=== PATIENT | male | born 2000 | race Caucasian/White ===

== ENCOUNTER 2024-12-31 12:31 | Emergency (ER) | payer OTHER ==
[2024-12-31] MEDS ORDERED: NA CHLORIDE 0.9% 1,000 ML ONE (13:12)
[2024-12-31 13:13] LABS: Absolute Lymphocytes (CBC) 1.8 K/uL (0.7-4.9); Hematocrit 43.2 % (39.6-49.0); Hemoglobin 14.7 g/dL (13.6-17.9); MCH 30.0 pg (27.0-35.0); MCHC 34.0 g/dL (32.0-36.0); MCV 88.3 fL (80-100); MPV 8.2 fL (7.6-11.3); Nucleated RBC Absolute Count 0.0 (0-0); Nucleated Red Blood Cells % 0.1 % (0-0); RBC Red Blood Cell Count 4.89 M/uL (4.33-5.43); White Blood Count 5.80 thou/uL (4.3-10.9)
--- NOTE | 2024-12-31 13:50 | RAD REPORT ---
EXAMINATION: ONE VIEW CHEST XR CLINICAL INDICATION: CHEST PAIN TECHNIQUE: Frontal chest projection is submitted. Examination is limited by patient positioning and t echnique. COMPARISON: No prior exam. FINDINGS: The lungs are well inflated and clear. The heart is upper limit of normal in size. No displaced fract ures identified. IMPRESSION: No acute intrathoracic abnormalities.
[2024-12-31 14:03] LABS: Anion Gap 7.4 mEq/L (5.0-15.0); BUN Blood Urea Nitrogen 14 mg/dL (7-18); Glucose Level 78 mg/dL (74-106); Potassium 3.4 mEq/L (3.5-5.1)
[2024-12-31 14:08] LABS: Influenza A Ag Negative; Influenza B Ag Negative; SARS-CoV-2 Antigen Rapid Res Negative (Negative)
[2024-12-31 14:08] LABS: Troponin High Sensitivity < 3.0 pg/mL (<58.9)
--- NOTE | 2024-12-31 14:40 | EDPHYS ---
Physician Documentation [facility] Name: Jamaal Peter Age: 24 yrs Sex: Male : 2000 Arrival Date: 12/31/2024 Time: 12:31 Bed 6 Private MD: ALEC Physician Senthil Alcala HPI: 12/31 18:03 This 24 yrs old Male presents to ER via Ambulatory with complaints of General dr5 Weakness, tired. 18:03 Onset: The symptoms/episode began/occurred 2 week(s) ago. Patient is a 24-year-old male dr5 with history of leukemia, arthritis, anxiety, depression, ADHD coming in with generalized weakness for the past 1 to 2 weeks. Patient reports that he has had intermittent dizziness. Patient states that he is concerned that his leukemia has possibly returned. Patient reports that he had blood work completed last May that was normal. Patient denies chest pain, shortness of breath, fever, abdominal pain, nausea, vomit, diarrhea.. Historical: - Allergies: 12:42 KETAMINE; ll1 12:42 pegaspargase; ll1 12:42 SHELLFISH; ll1 - PMHx: 12:42 Leukemia; Arthritis; ANXIETY/DEPRESSION; adhd; ll1 - PSHx: 12:42 BONE MARROW BIOPSY; KNEE SURGERY; SPINAL TAPS; ll1 - Immunization history:: Adult Immunizations up to date. - Infectious Disease History:: Denies. - Social history:: Smoking status: Patient denies any tobacco usage or history of. ROS: 18:03 Constitutional: as per hpi dr5 Exam: 18:03 Constitutional: This is a well developed, well nourished patient who is awake, alert, dr5 and in no acute distress. Head/Face: Normocephalic, atraumatic. Eyes: Pupils equal round and reactive to light, extra-ocular motions intact. Lids and lashes normal. Conjunctiva and sclera are non-icteric and not injected. Cornea within normal limits. Periorbital areas with no swelling, redness, or edema. Neck: Trachea midline, no thyromegaly or masses palpated, and no cervical lymphadenopathy. Supple, full range of motion without nuchal rigidity, or vertebral point tenderness. No Meningismus. Chest/axilla: Normal chest wall appearance and motion. Nontender with no deformity. No lesions are appreciated. Cardiovascular: Regular rate and rhythm with a normal S1 and S2. Normal PMI, no JVD. No pulse deficits. Respiratory: Lungs have equal breath sounds bilaterally, clear to auscultation. No rales, rhonchi or wheezes noted. No increased work of breathing, no retractions or nasal flaring. Back: No spinal tenderness. No costovertebral tenderness. Full range of motion. Skin: Warm, dry with normal turgor. Normal color with no rashes, no lesions, and no evidence of cellulitis. MS/ Extremity: Pulses equal, no cyanosis. Neurovascular intact. Full, normal range of motion. Neuro: Awake and alert, GCS 15, oriented to person, place, time, and situation. Cranial nerves II-XII grossly intact. Motor strength 5/5 in all extremities. Sensory grossly intact. Cerebellar exam normal. Normal gait. Vital Signs: 12:44 BP 136 / 94; Pulse 78; Resp 16; Temp 97; Pulse Ox 100% ; Weight 72.57 kg; Height 5 ft. ll1 8 in. ; Pain 0/10; 13:15 BP 123 / 88; Pulse 74; Resp 16; Pulse Ox 99% ; ar8 14:15 BP 117 / 71; Pulse 67; Resp 16 S; Pulse Ox 97% on R/A; Pain 0/10; ar8 15:00 BP 122 / 77; Pulse 79; Resp 18; Pulse Ox 100% on R/A; jp5 12:44 Body Mass Index 24.33 (72.57 kg, 172.72 cm) ll1 12:44 Pain Scale: Adult ll1 14:15 Pain Scale: Adult ar8 MDM: 12:36 Medical Screening Exam initiated dr5 18:03 Differential diagnosis: viral Infection, bacterial infection, URI, Anemia, leukemia, dr5 COVID, flu. Data reviewed: vital signs, nurses notes, lab test result(s), CBC, white blood cell count, hemoglobin, hematocrit, platelets, electrolytes, sodium, potassium, chloride, serum bicarbonate, BUN, creatinine, serum glucose, Flu: negative COVID negative, EKG, radiologic studies, plain films. Consideration of Admission/Observation Escalation of care including admission/observation considered. Escalation considered patient found to have elevated troponin, abnormal CBC, or abnormal chest x-ray.. I considered the following discharge prescriptions or medication management in the emergency department I discussed and recommended Over The Counter medications, Medications were administered in the Emergency Department. See MAR. Independent interpretation of the following test(s) in the Emergency Department X-Ray: My interpretation is Independent rotation of x-ray does not reveal infiltrates concerning for pneumonia. Care significantly affected by the following chronic conditions: Cancer, Anxiety, depression, arthritis. Care significantly affected by the following Social Determinants of Health: Poor access to healthcare and/or lack of insurance, Poor access to transportation, Problems related to employment. Counseling: I had a detailed discussion with the patient and/or guardian regarding the historical points, exam findings, and any diagnostic results supporting the discharge/admit diagnosis, the presence of at least one elevated blood pressure reading (>120/80) during this emergency department visit, lab results, radiology results, the need for outpatient follow up, for definitive care, a family practitioner, to return to the emergency department if symptoms worsen or persist or if there are any questions or concerns that arise at home. Medication response: NS. Response to treatment: the patient's symptoms have markedly improved after treatment. Special discussion: I discussed with the patient/guardian in detail that at this point there is no indication for admission to the hospital. It is understood, however, that if the symptoms persist or worsen the patient needs to return immediately for re-evaluation. Based on the history and exam findings, there is no indication for further emergent testing or inpatient evaluation. I discussed with the patient/guardian the need to see the primary care provider for further evaluation of the symptoms. ED course: Will have patient follow-up with primary care doctor. All labs printed and discussed with patient. Patient reports he is much better after fluids. Negative COVID, negative troponin, negative Bmp. All questions answered. Strict ER precautions given.. 12/31 12:44 Order name: Basic Metabolic Panel; Complete Time: 14:21 dr5 12/31 12:44 Order name: CBC with Diff; Complete Time: 13:24 dr5 12/31 12:44 Order name: Troponin HS; Complete Time: 14: dr5 12/31 13:37 Order name: COVID-19 Ag + Flu A+B Ag; Complete Time: 14:21 dr5 12/31 12:44 Order name: XRAY Chest (1 view); Complete Time: 14:21 dr5 12/31 12:44 Order name: EKG; Complete Time: 12:45 dr5 12/31 12:44 Order name: Cardiac monitoring; Complete Time: 13:15 dr5 12/31 12:44 Order name: EKG - Nurse/Tech; Complete Time: 13:15 dr5 12/31 12:44 Order name: IV Saline Lock; Complete Time: 13:21 dr5 12/31 12:44 Order name: Labs collected and sent; Complete Time: 13:05 dr5 12/31 12:44 Order name: O2 Per Protocol; Complete Time: 13:15 dr5 12/31 12:44 Order name: O2 Sat Monitoring; Complete Time: 13:15 dr5 12/31 13:23 Order name: Labs - recollect needed: recollect green; Complete Time: 13:36 bd EC:11 Rate is 75 beats/min. Rhythm is regular. QRS [place] is Normal. CA interval is normal at dr5 126 msec. QRS interval is normal at 90 msec. QT interval is normal at 372 msec. Clinical impression: Normal ECG and No evidence of ischemia. Administered Medications: 13:20 Drug: NS 0.9% IV 1000 ml IV at 1000 ml once; to be given as a bolus over 60 minutes ar8 Route: IV; Rate: 1000 ml; Site: left antecubital; Disposition Summary: 12/31/24 14:39 Discharge Ordered Notes: Location: Home dr5 Condition: Stable dr5 Diagnosis - Weakness dr5 Followup: dr5 - With: Emergency Department - When: As needed - Reason: Worsening of condition Followup: dr5 - With: Private Physician - When: 1 - 2 days - Reason: Recheck today's complaints, Continuance of care, Re-evaluation by your physician Discharge Instructions: - Discharge Summary Sheet dr5 - Fatigue dr5 Forms: - Work release form dr5 - Medication Reconciliation Form dr5 - Patient Portal Instructions dr5 - Leadership Thank You Letter dr5 Addendum: 01/02/2025 07:28 Co-signature as Attending Physician, Senthil Alcala MD I agree with the assessment and c acevedo plan of care. Signatures: Dispatcher [employer] Nessa Hebert Corey, MD MD cha Lewis, Lynsay, RN RN ll1 Salvatore Prado, DYE MACHINE TENDER-C DYE MACHINE TENDER-Cdr5 Roni Adams RN RN ar8 Corrections: (The following items were deleted from the chart) 12/31 13:37 13:37 COVID-19 Ag + Flu A+B [id number].[id number] ordered. EDMS EDMS
--- NOTE | 2024-12-31 14:40 | ER ---
Nurse's Notes [facility] Name: Jamaal Peter Age: 24 yrs Sex: Male : 2000 Arrival Date: 12/31/2024 Time: 12:31 Bed 6 Private MD: Diagnosis: Weakness Presentation: 12/31 12:44 Chief complaint: Patient states: Weak, tired for 1-2 weeks. Started to get lightheaded ll1 today. Went to Urgent Care, sent here for further evaluation. Coronavirus screen: Client denies travel out of the [place] in the last 14 days. At this time, the client does not indicate any symptoms associated with coronavirus-19. Ebola Screen: Patient denies travel to an Ebola-affected area in the 21 days before illness onset. Initial Sepsis Screen: Does the patient meet any 2 criteria? No. Patient's initial sepsis screen is negative. Does the patient have a suspected source of infection? No. Patient's initial sepsis screen is negative. Risk Assessment: Do you want to hurt yourself or someone else? Patient reports no desire to harm self or others. Onset of symptoms was December 17, 2024. 12:44 Method Of Arrival: Ambulatory ll1 12:44 Acuity: JEANNIE 3 ll1 Historical: - Allergies: 12:42 KETAMINE; ll1 12:42 pegaspargase; ll1 12:42 SHELLFISH; ll1 - PMHx: 12:42 Leukemia; Arthritis; ANXIETY/DEPRESSION; adhd; ll1 - PSHx: 12:42 BONE MARROW BIOPSY; KNEE SURGERY; SPINAL TAPS; ll1 - Immunization history:: Adult Immunizations up to date. - Infectious Disease History:: Denies. - Social history:: Smoking status: Patient denies any tobacco usage or history of. Screenin:15 [facility] ED Fall Risk Assessment (Adult) History of falling in the last 3 months, ar8 including since admission No falls in past 3 months (0 pts) Confusion or Disorientation No (0 pts) Intoxicated or Sedated No (0 pts) Impaired Gait No (0 pts) Mobility Assist Device Used No (0 pt) Altered Elimination No (0 pt) Score/Fall Risk Level 0 - 2 = Low Risk Oriented to surroundings, Maintained a safe environment. Abuse screen: Denies threats or abuse. Nutritional screening: No deficits noted. Tuberculosis screening: No symptoms or risk factors identified. Assessment: 13:22 General: Appears in no apparent distress. Behavior is calm, cooperative. Pain: Denies ar8 pain. Neuro: Level of Consciousness is awake, alert, obeys commands, Oriented to person, place, time, situation. Cardiovascular: Rhythm is sinus rhythm. Respiratory: Airway is patent Respiratory effort is even, unlabored, Respiratory pattern is regular, symmetrical. GI: No signs and/or symptoms were reported involving the gastrointestinal system. : No signs and/or symptoms were reported regarding the genitourinary system. EENT: No signs and/or symptoms were reported regarding the EENT system. Derm: Skin is intact, Skin is dry, Skin is pale, Skin temperature is warm. Musculoskeletal: Reports generalized weakness and fatigue for several weeks. Vital Signs: 12:44 BP 136 / 94; Pulse 78; Resp 16; Temp 97; Pulse Ox 100% ; Weight 72.57 kg; Height 5 ft. ll1 8 in. ; Pain 0/10; 13:15 BP 123 / 88; Pulse 74; Resp 16; Pulse Ox 99% ; ar8 14:15 BP 117 / 71; Pulse 67; Resp 16 S; Pulse Ox 97% on R/A; Pain 0/10; ar8 15:00 BP 122 / 77; Pulse 79; Resp 18; Pulse Ox 100% on R/A; jp5 12:44 Body Mass Index 24.33 (72.57 kg, 172.72 cm) ll1 12:44 Pain Scale: Adult ll1 14:15 Pain Scale: Adult ar8 ED Course: 12:35 Patient arrived in ED. al6 12:36 [facility] 12:36 Senthil Alcala MD is Attending Physician. dr5 12:42 Arm band placed on Patient placed in an exam room, on a stretcher. ll1 12:45 Triage completed. ll1 13:15 EKG done, by ED staff, reviewed by Salvatore SANTANA. Initial lab(s) drawn, by , rkDarrius sent to lab. 13:20 Bed in low position. Call light in reach. Side rails up X2. Provided Education on: plan ar8 of care. Client placed on continuous cardiac and pulse oximetry monitoring. NIBP monitoring applied. Warm blanket given. 13:20 No provider procedures requiring assistance completed. Inserted saline lock: 20 gauge ar8 in left antecubital area, using aseptic technique. Flushed with 10 mL NS. 13:36 Roni Adams, RN is Primary Nurse. ar8 13:39 XRAY Chest (1 view) In Process Unspecified. EDMS 13:45 COVID-19 Ag + Flu A+B Ag Sent. ar8 15:09 IV discontinued, intact, bleeding controlled, No redness/swelling at site. Pressure jp5 dressing applied. Administered Medications: 13:20 Drug: NS 0.9% IV 1000 ml IV at 1000 ml once; to be given as a bolus over 60 minutes ar8 Route: IV; Rate: 1000 ml; Site: left antecubital; Medication: 13:15 VIS not applicable for this client. ar8 Outcome: 14:39 Discharge ordered by . dr5 15:10 Patient left the ED. jp5 Signatures: Dispatcher [employer] EDMS Jojo Baker, RN RN ll1 Jo Ann Hammer RN RN jp5 Salvatore Prado, CERTIFIED PERFORMANCE TECHNOLOGIST-C CERTIFIED PERFORMANCE TECHNOLOGIST-[facility] [place] Kiana Mendez alEfrem Marinelli rk3 Roni Adams, RN RN ar8
[2024-12-31 15:20] VITALS: TEMP 97
[2024-12-31 15:37] VITALS: BP 122/77; O2SAT 100
== END 2024-12-31 15:10 | disposition home or self-care (01) ==
LOC: ER 12:31
DX: R53.1 Weakness (principal); Z11.52 Encounter for screening for COVID-19; Z85.6 Personal history of leukemia
CPT/HCPCS: 93005; 85025; 80048; 36415; 84484; 71045; 99284; 87428; J7030